=== PATIENT | female | born 1970 | race Two or more races ===

== ENCOUNTER → 2022-08-25 08:13 | Outpatient (CLI) | payer OTHER | END | disposition home or self-care (01) | LOC: NUCLEAR 08:00 | PROVIDERS: ATTEND General Practice | DX: R07.89 Other chest pain (principal); R00.2 Palpitations ==

== ENCOUNTER 2022-09-28 07:31 | Outpatient (CLI) | payer OTHER | END 2022-09-28 07:36 | disposition home or self-care (01) | LOC: NUCLEAR 07:31 | PROVIDERS: ATTEND Internal Medicine Cardiovascular Disease | DX: I20.8 Other forms of angina pectoris (principal); I11.9 Hypertensive heart disease without heart failure; R00.2 Palpitations; G45.9 Transient cerebral ischemic attack, unspecified | CPT/HCPCS: 78452; 93017; A9500; J0153 ==